=== PATIENT | female | born 1970 | race Caucasian/White ===

== ENCOUNTER → 2017-10-20 13:49 | Outpatient (CLI) | payer OTHER, SELFPAY ==
--- NOTE | 2017-10-20 13:52 | DI.US.S_ITS ---
PROCEDURE: US PELVIC COMPLETE INDICATIONS: menorrhagia TECHNIQUE: Real-time scanning was performed of the pelvic organs, with image documentation. Additional endovaginal scanning was necessary due to incomplete visualization of the adnexal and endometrial structures by transabdominal scanning. COMPARISON: [facility], , PELVIC COMPLETE, 06/09/2015, 13:30. FINDINGS: Transabdominal scanning: Limited scanning through the kidneys shows no hydronephrosis. No pathologic free abdominal or pelvic fluid. Endovaginal scanning: Uterus: Uterus is normal in size at 11.0 x 4.9 x 6.6 cm. The endometrium measures 14.0 mm in combined thickness. 2 fibroids are present, the largest of which is intramural measuring 1.8 x 2.0 x 2.0 cm and the smaller which may be submucosal measuring 1.0 x 1.2 x 1.3 cm. Ovaries: Ovaries normal in size measuring 2.7 x 1.7 x 1.8 cm and the right and 2.4 x 2.7 x 2.3 cm on the left. Bilateral follicular cysts present. IMPRESSION: 2 fibroids are present, the largest of which appears to be intramural and a smaller which is indeterminate but may be submucosal in origin. Dictated by: Michael SILVERIO Interpreted: Mark Garcia MD on 10/20/2017 at 14:42 Approved by: Mark Garcia M.D. on 10/21/2017 at 11:30
== END ==
PROVIDERS: Family Provider Family Medicine; PCP Family Medicine; Visit Provider Internal Medicine
DX: N92.0 Excessive and frequent menstruation with regular cycle (principal); D25.1 Intramural leiomyoma of uterus; N83.02 Follicular cyst of left ovary; N83.01 Follicular cyst of right ovary
CPT/HCPCS: 76830; 76856